=== PATIENT | male | born 1980 | race Caucasian/White ===

== ENCOUNTER 2017-12-22 10:08 | Emergency (ER) | payer BC ==
[2017-12-22 10:20] VITALS: RESP 18
--- NOTE | 2017-12-22 11:47 | ED ---
Dizziness HPI - General Chief Complaint: Dizziness Stated Complaint: Chest pain Time Seen by Provider: 12/22/17 10:54 Source: patient, RN notes reviewed Mode of arrival: wheelchair Limitations: no limitations - History of Present Illness Initial Comments: This is a 37-year-old male who presents with complaints of not feeling well. He states he had nausea vomiting and diarrhea 3 days ago the next day he felt better but is been having dizzy spells some hot flashes and sweats and 7. Also work today he had a brief episode of indigestion-like pain that lasted briefly but he had about 2 minutes of chest pain where he felt someone was standing as chest. He was seen at his doctor's office and EKG was done he was sent here for further evaluation. Patient states since arriving feels better he has any chest pain no shortness breath he has had a dry cough associated with some shortness of breath he had over the weekend. He has a dry cough as stated. No other complaints at this time. He is a smoker. No family history of early heart disease. MD Complaint: dizziness, lightheadedness, other - Related Data Previous Rx's Medication Instructions Recorded Meclizine [Antivert] 25 mg PO TID #20 tab 12/22/17 Allergies Allergy/AdvReac Type Severity Reaction Status Date / Time No Known Allergies Allergy Unverified 12/22/17 10:31 Review of Systems ROS Statement: Those systems with pertinent positive or pertinent negative responses have been documented in the HPI. ROS Other: All systems not noted in ROS Statement are negative. Past Medical History Past Medical History: No Reported History History of Any Multi-Drug Resistant Organisms: None Reported Past Surgical History: Appendectomy Past Psychological History: No Psychological Hx Reported Smoking Status: Current every day smoker Past Alcohol Use History: Rare Past Drug Use History: None Reported General Exam - General Exam Comments Initial Comments: This a well-developed well-nourished awake alert oriented history male Limitations: no limitations General appearance: alert, in no apparent distress Head exam: Present: atraumatic, normocephalic, normal inspection Eye exam: Present: normal appearance, PERRL, EOMI. Absent: scleral icterus, conjunctival injection, periorbital swelling ENT exam: Present: normal exam, mucous membranes moist Neck exam: Present: normal inspection. Absent: tenderness, meningismus, lymphadenopathy Respiratory exam: Present: normal lung sounds bilaterally. Absent: respiratory distress, wheezes, rales, rhonchi, stridor Cardiovascular Exam: Present: regular rate, normal rhythm, normal heart sounds. Absent: systolic murmur, diastolic murmur, rubs, gallop, clicks GI/Abdominal exam: Present: soft, normal bowel sounds. Absent: distended, tenderness, guarding, rebound, rigid Extremities exam: Present: normal inspection, full ROM, normal capillary refill. Absent: tenderness, pedal edema, joint swelling, calf tenderness Back exam: Present: normal inspection Neurological exam: Present: alert, oriented X3, CN II-XII intact Psychiatric exam: Present: normal affect, normal mood Skin exam: Present: warm, dry, intact, normal color. Absent: rash Course Vital Signs 12/22/17 10:17 Temperature 98.4 F Pulse Rate 74 Respiratory 18 Rate Blood Pressure 119/78 O2 Sat by Pulse 100 Oximetry - Reevaluation(s) Reevaluation #1: 12/22/17 13:38 Smoking cessation: I did have a long discussion with patient regarding the risks of smoking and benefits of stopping. Told conversation lasting 3.1 minutes. Medical Decision Making - Medical Decision Making I did discuss findings with the patient improved he'll be discharged on Antivert for dizziness. I did recommend that he quit smoking and also follow- up with his doctor and get outpatient stress test. He is in agreement with this. - Lab Data Result diagrams: 12/22/17 12:04 12/22/17 12:04 Lab Results 12/22/17 12/22/17 12/22/17 Range/Units 12:04 12:04 12:04 WBC 8.7 (3.8-10.6) k/uL RBC 5.78 (4.30-5.90) m/uL Hgb 15.8 (13.0-17.5) gm/dL Hct 48.7 (39.0-53.0) % MCV 84.4 (80.0-100.0) fL MCH 27.3 (25.0-35.0) pg MCHC 32.4 (31.0-37.0) g/dL RDW 12.4 (11.5-15.5) % Plt Count 211 (150-450) k/uL Neutrophils % 67 % Lymphocytes % 24 % Monocytes % 5 % Eosinophils % 2 % Basophils % 1 % Neutrophils # 5.8 (1.3-7.7) k/uL Lymphocytes # 2.1 (1.0-4.8) k/uL Monocytes # 0.5 (0-1.0) k/uL Eosinophils # 0.2 (0-0.7) k/uL Basophils # 0.1 (0-0.2) k/uL PT (9.0-12.0) sec INR (<1.2) APTT (22.0-30.0) sec D-Dimer (<0.60) mg/L FEU Sodium 139 (137-145) mmol/L Potassium 4.6 (3.5-5.1) mmol/L Chloride 103 (98-107) mmol/L Carbon Dioxide 27 (22-30) mmol/L Anion Gap 9 mmol/L BUN 15 (9-20) mg/dL Creatinine 0.54 L (0.66-1.25) mg/dL Est GFR (MDRD) Af Amer >60 (>60 ml/min/1.73 sqM) Est GFR (MDRD) Non-Af >60 (>60 ml/min/1.73 sqM) Glucose 89 (74-99) mg/dL Calcium 10.0 (8.4-10.2) mg/dL Magnesium 1.9 (1.6-2.3) mg/dL Total Bilirubin 0.4 (0.2-1.3) mg/dL AST 22 (17-59) U/L ALT 24 (21-72) U/L Alkaline Phosphatase 75 (38-126) U/L Total Creatine Kinase 87 (55-170) U/L CK-MB (CK-2) 1.0 (0.0-2.4) ng/mL CK-MB (CK-2) Rel Index 1.1 Troponin I <0.012 (0.000-0.034) ng/mL Total Protein 7.2 (6.3-8.2) g/dL Albumin 4.4 (3.5-5.0) g/dL Amylase 60 (30-110) U/L Lipase 52 (23-300) U/L 12/22/17 Range/Units 12:04 WBC (3.8-10.6) k/uL RBC (4.30-5.90) m/uL Hgb (13.0-17.5) gm/dL Hct (39.0-53.0) % MCV (80.0-100.0) fL MCH (25.0-35.0) pg MCHC (31.0-37.0) g/dL RDW (11.5-15.5) % Plt Count (150-450) k/uL Neutrophils % % Lymphocytes % % Monocytes % % Eosinophils % % Basophils % % Neutrophils # (1.3-7.7) k/uL Lymphocytes # (1.0-4.8) k/uL Monocytes # (0-1.0) k/uL Eosinophils # (0-0.7) k/uL Basophils # (0-0.2) k/uL PT 10.3 (9.0-12.0) sec INR 1.1 (<1.2) APTT 23.7 (22.0-30.0) sec D-Dimer 0.27 (<0.60) mg/L FEU Sodium (137-145) mmol/L Potassium (3.5-5.1) mmol/L Chloride (98-107) mmol/L Carbon Dioxide (22-30) mmol/L Anion Gap mmol/L BUN (9-20) mg/dL Creatinine (0.66-1.25) mg/dL Est GFR (MDRD) Af Amer (>60 ml/min/1.73 sqM) Est GFR (MDRD) Non-Af (>60 ml/min/1.73 sqM) Glucose (74-99) mg/dL Calcium (8.4-10.2) mg/dL Magnesium (1.6-2.3) mg/dL Total Bilirubin (0.2-1.3) mg/dL AST (17-59) U/L ALT (21-72) U/L Alkaline Phosphatase (38-126) U/L Total Creatine Kinase (55-170) U/L CK-MB (CK-2) (0.0-2.4) ng/mL CK-MB (CK-2) Rel Index Troponin I (0.000-0.034) ng/mL Total Protein (6.3-8.2) g/dL Albumin (3.5-5.0) g/dL Amylase (30-110) U/L Lipase (23-300) U/L - EKG Data -: EKG Interpreted by Me EKG shows normal: sinus rhythm, axis, intervals, QRS complexes, ST-T waves (EKG shows a normal sinus rhythm a 65 appear interval 158 QRS duration 88 QT since QTC of 394/49 is normal. EKG.) Rate: normal - Radiology Data Radiology results: report reviewed (I did review the imaging and reports no acute findings.), image reviewed Disposition Clinical Impression: Dizziness, Atypical chest pain Disposition: HOME SELF-CARE Condition: Good Instructions: Dizziness (ED), Chest Pain (ED) Additional Instructions: Follow-up with her doctor. Recommendations are for an outpatient cardiac stress test. Prescriptions: Meclizine [Antivert] 25 mg PO TID #20 tab Referrals: Papo Herrera MD [Primary Care Provider] - 1-2 days
[2017-12-22 12:25] LABS: Basophils # (A) 0.1 k/uL (0-0.2); Basophils % (A) 1 %; Eosinophils # (A) 0.2 k/uL (0-0.7); Eosinophils % (A) 2 %; HCT 48.7 % (39.0-53.0); HGB 15.8 gm/dL (13.0-17.5); Lymphocytes # (A) 2.1 k/uL (1.0-4.8); Lymphocytes % (A) 24 %; MCH 27.3 pg (25.0-35.0); MCHC 32.4 g/dL (31.0-37.0); MCV 84.4 fL (80.0-100.0); Mean Platelet Volume 6.1; Monocytes # (A) 0.5 k/uL (0-1.0); Monocytes % (A) 5 %; Neutrophils # (A) 5.8 k/uL (1.3-7.7); Neutrophils % (A) 67 %; Platelet Count 211 k/uL (150-450); RBC 5.78 m/uL (4.30-5.90); RDW 12.4 % (11.5-15.5); WBC 8.7 k/uL (3.8-10.6)
[2017-12-22 12:32] LABS: D-Dimer 0.27 mg/L FEU (<0.60)
[2017-12-22 12:36] LABS: ALT 24 U/L (21-72); AST 22 U/L (17-59); Albumin 4.4 g/dL (3.5-5.0); Alkaline Phosphatase 75 U/L (38-126); Amylase 60 U/L (30-110); Anion Gap 9 mmol/L; Blood Urea Nitrogen 15 mg/dL (9-20); Carbon Dioxide 27 mmol/L (22-30); Chloride 103 mmol/L (98-107); Glucose 89 mg/dL (74-99); INR 1.1 (<1.2); Lipase 52 U/L (23-300); Magnesium 1.9 mg/dL (1.6-2.3); Partial Thromboplastin Time 23.7 sec (22.0-30.0); Potassium 4.6 mmol/L (3.5-5.1); Prothrombin Time 10.3 sec (9.0-12.0); Sodium 139 mmol/L (137-145); Total Bilirubin 0.4 mg/dL (0.2-1.3); Total Protein 7.2 g/dL (6.3-8.2)
--- NOTE | 2017-12-22 12:39 | XR ---
EXAMINATION TYPE: XR chest 2V DATE OF EXAM: 12/22/2017 COMPARISON: NONE HISTORY: Chest pain TECHNIQUE: 2 views of the chest are submitted. FINDINGS: There is no focal air space opacity, pleural effusion, or pneumothorax seen. The cardiac silhouette size is within normal limits. The osseous structures are intact. IMPRESSION: 1. No acute process.
[2017-12-22 12:51] LABS: Creatine Kinase 87 U/L (55-170)
[2017-12-22 13:05] LABS: Troponin I <0.012 ng/mL (0.000-0.034)
[2017-12-22 13:53] VITALS: BP 108/76; PULSE 73; TEMP 98.8
== END 2017-12-22 13:51 | disposition home or self-care (01) ==
LOC: EC 10:08
DX: R42 Dizziness and giddiness (principal); R07.89 Other chest pain; R11.2 Nausea with vomiting, unspecified; R19.7 Diarrhea, unspecified; R05 Cough; R06.02 Shortness of breath; F17.200 Nicotine dependence, unspecified, uncomplicated
CPT/HCPCS: 36415; 71046; 80053; 82150; 82550; 82553; 83690; 83735; 84484; 85025; 85379; 85610; 85730; 93005; 99284

== ENCOUNTER 2018-06-24 12:02 | Emergency (ER) | payer BC, OTHER ==
[2018-06-24 12:18] VITALS: TEMP 98.3
[2018-06-24] MEDS ORDERED: LIDOCAINE 1% INJ 10MG/ML (20 ML MDV) SQ STA (13:01)
--- NOTE | 2018-06-24 13:03 | ED ---
General Adult HPI - General Chief complaint: Wound/Laceration Stated complaint: Finger Laceration Time Seen by Provider: 06/24/18 12:44 Source: patient, RN notes reviewed Mode of arrival: ambulatory Limitations: no limitations - History of Present Illness Initial comments: Patient 37-year-old male presents to the emergency room today with a chief complaint of injury to the left hand when he was using a hedge or retention bushes at home. He states slipped causing this laceration to left hand. Patient does admit his tetanus is up-to-date. Patient denies any other complaints or symptoms. States he has full range of motion. Denies any numbness or tingling. - Related Data Previous Rx's Medication Instructions Recorded Meclizine [Antivert] 25 mg PO TID #20 tab 12/22/17 Allergies Allergy/AdvReac Type Severity Reaction Status Date / Time No Known Allergies Allergy Verified 06/24/18 12:17 Review of Systems ROS Statement: Those systems with pertinent positive or pertinent negative responses have been documented in the HPI. ROS Other: All systems not noted in ROS Statement are negative. Past Medical History Past Medical History: No Reported History History of Any Multi-Drug Resistant Organisms: None Reported Past Surgical History: Appendectomy, Orthopedic Surgery Past Psychological History: No Psychological Hx Reported Smoking Status: Current every day smoker Past Alcohol Use History: Occasional Past Drug Use History: Marijuana General Exam - General Exam Comments Initial Comments: General: The patient is awake and alert, in no distress, and does not appear acutely ill. Neck: The neck is supple, there is no tenderness or JVD. Musculoskeletal: Full range motion. Sensation intact. Strength 4/5. Pulses 2+ . Neurological: A&O x 3. CN II-XII intact, There are no obvious motor or sensory deficits. Coordination appears grossly intact. Speech is normal. Skin: Laceration to the volar aspect of the third digit of the left hand measuring less than 1 cm. Psychiatric: Normal mood and affect. Limitations: no limitations Course Vital Signs 06/24/18 12:14 Temperature 98.3 F Pulse Rate 78 Respiratory 16 Rate Blood Pressure 149/97 O2 Sat by Pulse 99 Oximetry Procedures - Procedures Initial comment: 1 cm laceration to the volar aspect of the right middle finger.The skin was anesthetized with 1% lidocaine at the head of the metacarpal.. The laceration was then cleansed with Betadine and irrigated with normal saline. The wound was inspected, and there was no evidence of injury to deep structures. No foreign body was noted in the wound. A total of 3 skin sutures were placed utilizing 5- 0 nylon. Disposition Clinical Impression: Laceration Disposition: HOME SELF-CARE Condition: Good Instructions: Laceration (ED) Additional Instructions: Please return to the emergency room in 8-10 days to have sutures removed. Please watch for any signs of infection which may include increased pain, swelling, redness, fever or chills. Please return to emergency room for any signs of infection do occur. Please use clean soap and water over the area to prevent scabbing over your stitches. Please leave wound covered for the first 24-48 hours and then leave wound open to air. Please return to the emergency room for any other concerns. Is patient prescribed a controlled substance at d/c from ED?: No Referrals: Papo Herrera MD [Primary Care Provider] - 1-2 days Time of Disposition: 13:51
[2018-06-24 14:02] VITALS: BP 118/73; PULSE 64; RESP 18
== END 2018-06-24 14:02 | disposition home or self-care (01) ==
LOC: EC 12:02
DX: S61.213A Laceration without foreign body of left middle finger without damage to nail, initial encounter (principal); F17.200 Nicotine dependence, unspecified, uncomplicated; Z90.49 Acquired absence of other specified parts of digestive tract; W26.8XXA Contact with other sharp object(s), not elsewhere classified, initial encounter; Y92.89 Other specified places as the place of occurrence of the external cause; Y93.89 Activity, other specified
CPT/HCPCS: 99282; 12001; J2001

== ENCOUNTER 2019-01-04 20:12 | Emergency (ER) | payer OTHER ==
[2019-01-04 20:31] VITALS: BP 117/82; PULSE 83; RESP 18; TEMP 98.5
[2019-01-04] MEDS ORDERED: DIPH,PERTUS(ACELL)TETVAC-LF 0.5 ML VIAL IM ONE (20:56)
[2019-01-04] MEDS ORDERED: LIDOCAINE 1% INJ 10MG/ML (20 ML MDV) SQ STA (20:57)
--- NOTE | 2019-01-04 21:27 | ED ---
General Adult HPI - General Chief complaint: Wound/Laceration Stated complaint: lt middle finger lac Time Seen by Provider: 01/04/19 20:37 Source: patient, family, RN notes reviewed, old records reviewed Mode of arrival: ambulatory Limitations: no limitations - History of Present Illness Initial comments: 38-year-old male patient with no pertinent past medical history presents to ED after sustaining a laceration to the dorsal aspect of the third digit on has left hand. Patient was reportedly sharpening knife when he accidentally hit a superficial laceration on the dorsal aspect of his third digit distal to his PIP joint. Patient denies any other injury. Patient reports last tetanus was 5 years ago. Patient had tetanus updated today. Systemic: Pt denies fatigue, myalgia, fever/chills, rash. Pt denies weakness, night sweats, weight loss. Neuro: Pt denies headache, visual disturbances, syncope or pre-syncope. HEENT: Pt denies ocular discharge or irritation, otalgia, rhinorrhea, pharyngitis or notable lymphadenopathy. Cardiopulmonary: Pt denies chest pain, SOB, heart palpitations, dyspnea on exertion. Abdominal/GI: Pt denies abdominal pain, n/v/d. : Pt denies dysuria, burning w/ urination, frequency/urgency. Denies new onset urinary or bowel incontinence. MSK: Pt denies myalgia, loss of strength or function in extremities. Neuro: Pt denies new onset weakness, paresthesias. - Related Data Previous Rx's Medication Instructions Recorded Meclizine [Antivert] 25 mg PO TID #20 tab 12/22/17 Allergies Allergy/AdvReac Type Severity Reaction Status Date / Time No Known Allergies Allergy Verified 01/04/19 20:31 Review of Systems ROS Statement: Those systems with pertinent positive or pertinent negative responses have been documented in the HPI. ROS Other: All systems not noted in ROS Statement are negative. Past Medical History Past Medical History: No Reported History History of Any Multi-Drug Resistant Organisms: None Reported Past Surgical History: Appendectomy, Orthopedic Surgery Past Psychological History: No Psychological Hx Reported Smoking Status: Current every day smoker Past Alcohol Use History: Occasional Past Drug Use History: Marijuana General Exam - General Exam Comments Initial Comments: Constitutional: NAD, AOX3, Pt has pleasant affect. HEENT: NC/AT, trachea midline, neck supple, no lymphadenopathy. Posterior pharynx non erythematous, without exudates. External ears appear normal, without discharge. Mucous membranes moist. Eyes PERRLA, EOM intact. There is no scleral icterus. No pallor noted. Cardiopulmonary: RRR, no murmurs, rubs or gallops, no JVD noted. Lungs CTAB in anterior and posterior mont[place]ayor. No peripheral edema. Abdominal exam: Abdomen soft and non-distended. Abdomen non-tender to palpation in all 4 quadrants. Bowel sounds active in LLQ. No hepatosplenomegaly. No ecchymosis Neuro: CN II-XII grossly intact. No nuchal rigidity. MSK: Approximately 2 cm laceration noted distal to PIP joint of third digit of left hand. Wound is superficial. No bony or ligamentous involvement. No foreign body. Wound closed with 4 simple interrupted sutures. Patient has intact flexion and extension of PIP, DIP and MCP joint of the affected finger. Patient sensation intact. Capillary refill less than 2 seconds. No posterior calf tenderness bilaterally, homans sign negative bilaterally. Posterior tibialis and radial pulse +2 bilaterally. Sensation intact in upper and lower extremities. Full active ROM in upper and lower extremities, 5/5 stregnth. Limitations: no limitations Course Vital Signs 01/04/19 20:27 Temperature 98.5 F Pulse Rate 83 Respiratory 18 Rate Blood Pressure 117/82 O2 Sat by Pulse 97 Oximetry Medical Decision Making - Medical Decision Making 38-year-old male patient presents with laceration to third digit of left hand. Wound is closed with 4 simple interrupted sutures. Patient to follow-up in 710 days for suture removal. Patient educated on signs symptoms of infection, verbalized understanding. Patient tetanus updated today. Patient to return to ED if new signs symptoms develop or if condition worsens anyway. Case discussed in depth with Dr. Morrissey. Disposition Clinical Impression: Laceration Disposition: HOME SELF-CARE Condition: Stable Instructions (If sedation given, give patient instructions): Laceration (ED) Additional Instructions: Patient to adhere to previously discussed treatment plan and will take medication(s) as directed. Patient to follow up with PCP in 1-2 days. Patient to return to ED if symptoms do not improve. Is patient prescribed a controlled substance at d/c from ED?: No Referrals: Papo Herrera MD [Primary Care Provider] - 1-2 days Time of Disposition: 21:55
--- NOTE | 2019-01-04 23:13 | ED ---
Disposition Clinical Impression: Laceration Disposition: HOME SELF-CARE Condition: Stable Instructions (If sedation given, give patient instructions): Laceration (ED) Additional Instructions: Patient to adhere to previously discussed treatment plan and will take medication(s) as directed. Patient to follow up with PCP in 1-2 days. Patient to return to ED if symptoms do not improve. Is patient prescribed a controlled substance at d/c from ED?: No Referrals: Papo Herrera MD [Primary Care Provider] - 1-2 days Procedures - Laceration Laceration #1 Consent Obtained: verbal consent Indication: laceration Site: hand (3rd digit L hand) Size (cm): 2 Description: linear Depth: simple, single layer Anesthetic Used: lidocaine 1% Anesthesia Technique: local infiltration Amount (mls): 3 Pre-repair: wound explored, deep structures intact Type of Sutures: nylon Size of Sutures: 5-0 Number of Sutures: 4 Technique: simple, interrupted Patient Tolerated Procedure: well, no complications
== END 2019-01-04 22:02 | disposition home or self-care (01) ==
LOC: EC 20:12
DX: S61.213A Laceration without foreign body of left middle finger without damage to nail, initial encounter (principal); Z23 Encounter for immunization; F17.200 Nicotine dependence, unspecified, uncomplicated; W26.0XXA Contact with knife, initial encounter; Y92.000 Kitchen of unspecified non-institutional (private) residence as the place of occurrence of the external cause
CPT/HCPCS: 90715; 99283; 12001; 90471; J2001

== ENCOUNTER 2020-02-10 23:32 | Emergency (ER) | payer OTHER ==
[2020-02-11 00:03] VITALS: BP 111/75; RESP 18; TEMP 98
[2020-02-11] MEDS ORDERED: IPRATROPIUM-ALBUTEROL 3 ML NEB INHALATION STA (01:06)
[2020-02-11] MEDS ORDERED: predniSONE 50 MG TAB PO STA (01:06)
--- NOTE | 2020-02-11 01:26 | XR ---
EXAMINATION TYPE: XR chest 2V DATE OF EXAM: 02/11/2020 COMPARISON: 12/22/2017 HISTORY: Nausea and dizziness TECHNIQUE: FINDINGS: Heart and mediastinum are normal. Lungs are clear. Diaphragm is normal. Bony thorax appears normal. IMPRESSION: Normal chest. No change.
[2020-02-11] MEDS ORDERED: AZITHROMYCIN 500 MG TAB PO STA (01:30)
--- NOTE | 2020-02-11 01:32 | ED ---
URI HPI - General Chief Complaint: Upper Respiratory Infection Stated Complaint: diff breathing,weakness Time Seen by Provider: 02/11/20 00:52 Source: patient Mode of arrival: ambulatory - History of Present Illness Initial Comments: 39-year-old male patient presents to the emergency department today for evaluation of cough, congestion, facial pressure for the last 3 weeks. Patient states symptoms started as a usual upper respiratory infection. Patient states most of the symptoms have decreased except his cough and facial pressure gotten worse. He is reporting a dry cough with no sputum production. States he has a coughing episodes where causes him to vomit. Patient states he is also having a lot of pressure behind the right eye and decreased hearing to the right ear. Patient denies any ear drainage. Denies any fevers or chills. States he has had sinus infections in the past that were similar. He does report some shortness of breath especially with going upstairs and performing physical activity. Denies any wheezing. Does admit to smoking cigarettes. Patient denies any recent rash, chest pain, abdominal pain, nausea, vomiting, diarrhea, constipation, back pain, numbness, tingling, dizziness, weakness, hematuria, dysuria, urinary urgency, urinary frequency, headache, visual changes, or any other complaints. - Related Data Previous Rx's Medication Instructions Recorded Meclizine [Antivert] 25 mg PO TID #20 tab 12/22/17 Albuterol Sulfate [Proair Hfa] 1 - 2 puff INHALATION Q6HR PRN #1 02/11/20 inhaler Azithromycin [Zithromax Z-pack] 0 mg PO DIRECTED #6 tab 02/11/20 predniSONE 50 mg PO DAILY #5 tablet 02/11/20 Allergies Allergy/AdvReac Type Severity Reaction Status Date / Time bee venom protein (honey bee) AdvReac Anaphylaxis Verified 02/11/20 00:04 Review of Systems ROS Statement: Those systems with pertinent positive or pertinent negative responses have been documented in the HPI. ROS Other: All systems not noted in ROS Statement are negative. Past Medical History Past Medical History: No Reported History History of Any Multi-Drug Resistant Organisms: None Reported Past Surgical History: Appendectomy, Orthopedic Surgery Past Psychological History: ADD/ADHD Smoking Status: Current every day smoker Past Alcohol Use History: Rare Past Drug Use History: Marijuana General Exam General appearance: alert, in no apparent distress, other (This is a well- developed, well-nourished adult male patient in no acute distress. Vital signs upon presentation are temperature 98.0F, pulse 92, respirations 18, blood pressure 111/75, pulse ox 98% on room air.) Eye exam: Present: normal appearance, PERRL, EOMI. Absent: scleral icterus, conjunctival injection, periorbital swelling ENT exam: Present: normal exam, normal oropharynx, mucous membranes moist. Absent: TM's normal bilaterally (Bulging right tympanic membrane, consistent with fluid behind the ear. No sign of otitis media) Neck exam: Present: normal inspection. Absent: tenderness, meningismus, lymphadenopathy Respiratory exam: Present: normal lung sounds bilaterally. Absent: respiratory distress, wheezes, rales, rhonchi, stridor Cardiovascular Exam: Present: regular rate, normal rhythm, normal heart sounds. Absent: systolic murmur, diastolic murmur, rubs, gallop, clicks Neurological exam: Present: alert, oriented X3, CN II-XII intact Psychiatric exam: Present: normal affect, normal mood Skin exam: Present: warm, dry, intact, normal color. Absent: rash Course Vital Signs 02/10/20 02/11/20 02/11/20 23:59 01:30 01:39 Temperature 98.0 F Pulse Rate 92 70 70 Respiratory 18 Rate Blood Pressure 111/75 O2 Sat by Pulse 98 Oximetry Medical Decision Making - Medical Decision Making 39-year-old male patient presents to the emergency department today for evaluation of upper respiratory symptoms including cough, congestion, nasal pressure. Physical examination did reveal fluid behind the right eardrum. Chest x-ray showed no acute cardiopulmonary process. Patient does report improvement of symptoms after receiving a breathing treatment and steroids. He'll be discharged home with a perception for prednisone, azithromycin, and Pro Air inhaler. He is instructed to follow-up with his primary care physician for recheck in 1-2 days. Return parameters were discussed in detail. He verbalizes understanding and agrees with this plan. - Radiology Data Radiology results: report reviewed, image reviewed Two-view x-ray of the chest is obtained. Report was reviewed in its entirety. Impression by Dr. Ortiz shows normal chest. No change. Disposition Clinical Impression: Acute bronchitis Disposition: HOME SELF-CARE Condition: Good Instructions (If sedation given, give patient instructions): Acute Bronchitis (ED) Additional Instructions: Take medications as directed. Continue taking Sudafed [id number] to aid with drainage of a right ear. Complete antibiotic and steroid prescription in full. Follow-up with her primary care physician for recheck in 1-2 days. Return to the emergency department immediately for any new, worsening, or concer cinthia symptoms. Prescriptions: predniSONE 50 mg PO DAILY #5 tablet Albuterol Sulfate [Proair Hfa] 1 - 2 puff INHALATION Q6HR PRN #1 inhaler PRN Reason: Shortness Of Breath Azithromycin [Zithromax Z-pack] 0 mg PO DIRECTED #6 tab Is patient prescribed a controlled substance at d/c from ED?: No Referrals: Papo Herrera MD [Primary Care Provider] - 1-2 days Time of Disposition: 01:32
[2020-02-11 01:33] VITALS: PULSE 70
== END 2020-02-11 01:50 | disposition home or self-care (01) ==
LOC: EC 23:32
DX: J20.9 Acute bronchitis, unspecified (principal); F17.210 Nicotine dependence, cigarettes, uncomplicated; Z91.030 Bee allergy status
CPT/HCPCS: 94640; 71046; 99285; J7512

== ENCOUNTER 2020-06-01 15:21 | Emergency (ER) | payer OTHER ==
[2020-06-01 15:33] VITALS: BP 117/88; PULSE 77; RESP 18; TEMP 98.4
[2020-06-01] MEDS ORDERED: IBUPROFEN 400 MG TAB PO STA (16:04)
--- NOTE | 2020-06-01 17:06 | ED ---
General Adult HPI - General Chief complaint: ENT Stated complaint: ear and throat pain Time Seen by Provider: 06/01/20 15:26 Source: patient, RN notes reviewed, old records reviewed Mode of arrival: ambulatory Limitations: no limitations - History of Present Illness Initial comments: 39-year-old male patient presents ED chief complaint of sore throat and right ear pain. He reports that he has a swollen lymph node in his right submandibular region which is causing him pain. Denies any cough congestion. Reports she was recently tested for coronavirus virus and was negative. Denies any other complaints. Systemic: Pt denies fatigue, fever/chills, rash. Pt denies weakness, night sweats, weight loss. Neuro: Pt denies headache, visual disturbances, syncope or pre-syncope. HEENT: Pt denies ocular discharge or irritation, otalgia, rhinorrhea. Cardiopulmonary: Pt denies chest pain, SOB, heart palpitations, dyspnea on exertion. Abdominal/GI: Pt denies abdominal pain, n/v/d. : Pt denies dysuria, burning w/ urination, frequency/urgency. Denies new onset urinary or bowel incontinence. MSK: Pt denies myalgia, loss of strength or function in extremities. Neuro: Pt denies new onset weakness, paresthesias. - Related Data Previous Rx's Medication Instructions Recorded Meclizine [Antivert] 25 mg PO TID #20 tab 12/22/17 Albuterol Sulfate [Proair Hfa] 1 - 2 puff INHALATION Q6HR PRN #1 02/11/20 inhaler Azithromycin [Zithromax Z-pack] 0 mg PO DIRECTED #6 tab 02/11/20 predniSONE 50 mg PO DAILY #5 tablet 02/11/20 Allergies Allergy/AdvReac Type Severity Reaction Status Date / Time bee venom protein (honey bee) AdvReac Anaphylaxis Verified 06/01/20 15:30 Review of Systems ROS Statement: Those systems with pertinent positive or pertinent negative responses have been documented in the HPI. ROS Other: All systems not noted in ROS Statement are negative. Past Medical History Past Medical History: No Reported History History of Any Multi-Drug Resistant Organisms: None Reported Past Surgical History: Appendectomy, Orthopedic Surgery Past Psychological History: ADD/ADHD Smoking Status: Current every day smoker Past Alcohol Use History: None Reported Past Drug Use History: Marijuana General Exam - General Exam Comments Initial Comments: Constitutional: NAD, AOX3, Pt has pleasant affect. HEENT: NC/AT, trachea midline, neck supple, mild submandibular adenopathy noted, mobile, no skin changes. Posterior pharynx non erythematous, without exudates. External ears appear normal, without discharge. TM pale greenberg bilaterally. Mucous membranes moist. Eyes PERRLA, EOM intact. There is no scleral icterus. No pallor noted. Cardiopulmonary: RRR, no murmurs, rubs or gallops, no JVD noted. Lungs CTAB in anterior and posterior [place]. No peripheral edema. Abdominal exam: Abdomen soft and non-distended. Abdomen non-tender to palpation in all 4 quadrants. Bowel sounds active in LLQ. No hepatosplenomegaly. No ecchymosis Neuro: CN II-XII grossly intact. No nuchal rigidity. No raccon eyes, no castillo sign, no hemotympanum. No cervical spinal tenderness. MSK: Full active ROM in upper and lower extremities, 5/5 stregnth. Limitations: no limitations Course Vital Signs 06/01/20 15:30 Temperature 98.4 F Pulse Rate 77 Respiratory 18 Rate Blood Pressure 117/88 O2 Sat by Pulse 96 Oximetry Medical Decision Making - Medical Decision Making 39-year-old male patient received chief complaint of sore throat ear pain 70 regular lymphadenopathy. Patient also has a stable, afebrile. Physical exam displayed mild submandibular lymphadenopathy. Posterior pharynx and tympanic membranes exam negative for acute pathology. Group A strep was negative. Patient advised to use anti-inflammatories. With primary care provider and return to ER if condition worsens. Patient denies covid test. Case discussed with Dr. Morrissey. - Lab Data Lab Results 06/01/20 Range/Units 16:09 Group A Strep Rapid Negative (Negative) Disposition Clinical Impression: Sore throat, Otalgia Disposition: HOME SELF-CARE Condition: Stable Instructions (If sedation given, give patient instructions): Earache (ED) Additional Instructions: Follow-up with primary care provider tomorrow. Use Tylenol and Motrin as needed. Return to ER if condition worsens. Is patient prescribed a controlled substance at d/c from ED?: No Referrals: Papo Herrera MD [Primary Care Provider] - 1-2 days
== END 2020-06-01 17:21 | disposition home or self-care (01) ==
LOC: EC 15:21
DX: H92.01 Otalgia, right ear (principal); J02.9 Acute pharyngitis, unspecified; R59.0 Localized enlarged lymph nodes; F17.200 Nicotine dependence, unspecified, uncomplicated; Z91.030 Bee allergy status
CPT/HCPCS: 87081; 87430; 99283

== ENCOUNTER 2021-04-18 11:16 | Emergency (ER) | payer OTHER ==
[2021-04-18 11:33] VITALS: RESP 18; TEMP 98.1
[2021-04-18] MEDS ORDERED: SODIUM CHLORIDE 0.9% 2,000 ML IV STA (12:45)
[2021-04-18] MEDS ORDERED: ONDANSETRON 4 MG/2 ML VIAL IVP STA (12:45)
[2021-04-18] MEDS ORDERED: DICYCLOMINE 20 MG TAB PO STA (12:46)
--- NOTE | 2021-04-18 13:04 | ED ---
Nausea/Vomiting/Diarrhea HPI - General Chief complaint: Nausea/Vomiting/Diarrhea Stated complaint: vomiting Time Seen by Provider: 04/18/21 12:23 Source: patient, RN notes reviewed Mode of arrival: ambulatory Limitations: no limitations - History of Present Illness Initial comments: This a 40-year-old male presents emergency Department chief complaint of nausea vomiting abdominal discomfort. Patient states started 4 days ago states started 3 minutes after eating some food. He initially thought he just had some illness from food. Patient states symptoms have not improved much she states she is able to tolerate oral intake states causes some abdominal cramping and later tonight he ends up vomiting. Patient reports no localized pain no fevers chills no headache or dizziness currently. Patient's had prior appendectomy doesn't there is a daily smoker. - Related Data Previous Rx's Medication Instructions Recorded Dicyclomine [Bentyl] 20 mg PO TID #30 tablet 04/18/21 Ondansetron Odt [Zofran Odt] 4 mg PO Q8HR PRN #10 tab 04/18/21 Allergies Allergy/AdvReac Type Severity Reaction Status Date / Time bee venom protein (honey bee) Allergy Anaphylaxis Verified 04/18/21 12:57 Review of Systems ROS Statement: Those systems with pertinent positive or pertinent negative responses have been documented in the HPI. ROS Other: All systems not noted in ROS Statement are negative. Past Medical History Past Medical History: No Reported History History of Any Multi-Drug Resistant Organisms: None Reported Past Surgical History: Appendectomy, Orthopedic Surgery Past Psychological History: ADD/ADHD Smoking Status: Current every day smoker Past Alcohol Use History: None Reported Past Drug Use History: Marijuana General Exam Limitations: no limitations General appearance: alert, in no apparent distress Head exam: Present: atraumatic, normocephalic, normal inspection Eye exam: Present: normal appearance, PERRL, EOMI. Absent: scleral icterus, conjunctival injection, periorbital swelling ENT exam: Present: normal exam, mucous membranes moist Neck exam: Present: normal inspection. Absent: tenderness, meningismus, lymphadenopathy Respiratory exam: Present: wheezes. Absent: normal lung sounds bilaterally, respiratory distress, rales, rhonchi, stridor Cardiovascular Exam: Present: regular rate, normal rhythm, normal heart sounds. Absent: systolic murmur, diastolic murmur, rubs, gallop, clicks GI/Abdominal exam: Present: soft, tenderness (Mild diffuse), normal bowel sounds. Absent: distended, guarding, rebound, rigid Back exam: Absent: CVA tenderness (R), CVA tenderness (L) Neurological exam: Present: alert Skin exam: Present: warm, dry, intact, normal color. Absent: rash Course Vital Signs 04/18/21 11:29 Temperature 98.1 F Pulse Rate 82 Respiratory 18 Rate Blood Pressure 116/75 O2 Sat by Pulse 97 Oximetry Medical Decision Making - Medical Decision Making 4-year-old presented for nausea vomiting patient greatly improved after IV fluids Zofran and Bentyl he states he does not have any abdominal cramps or nausea. This most leg is a viral GI illness will be discharged and stable condition return parameters discussed. - Lab Data Result diagrams: 04/18/21 13:05 04/18/21 13:05 Lab Results 04/18/21 04/18/21 04/18/21 Range/Units 13:05 13:05 13:05 WBC 9.3 (3.8-10.6) k/uL RBC 5.55 (4.30-5.90) m/uL Hgb 15.5 (13.0-17.5) gm/dL Hct 45.4 (39.0-53.0) % MCV 82.0 (80.0-100.0) fL MCH 28.0 (25.0-35.0) pg MCHC 34.2 (31.0-37.0) g/dL RDW 12.3 (11.5-15.5) % Plt Count 226 (150-450) k/uL MPV 6.3 Neutrophils % 60 % Lymphocytes % 28 % Monocytes % 8 % Eosinophils % 1 % Basophils % 1 % Neutrophils # 5.5 (1.3-7.7) k/uL Lymphocytes # 2.6 (1.0-4.8) k/uL Monocytes # 0.8 (0-1.0) k/uL Eosinophils # 0.1 (0-0.7) k/uL Basophils # 0.1 (0-0.2) k/uL Sodium 135 L (137-145) mmol/L Potassium 3.7 (3.5-5.1) mmol/L Chloride 101 (98-107) mmol/L Carbon Dioxide 27 (22-30) mmol/L Anion Gap 7 mmol/L BUN 13 (9-20) mg/dL Creatinine 0.55 L (0.66-1.25) mg/dL Est GFR (CKD-EPI)AfAm >90 (>60 ml/min/1.73 sqM) Est GFR (CKD-EPI)NonAf >90 (>60 ml/min/1.73 sqM) Glucose 100 H (74-99) mg/dL Calcium 9.7 (8.4-10.2) mg/dL Total Bilirubin 0.8 (0.2-1.3) mg/dL AST 25 (17-59) U/L ALT 12 (4-49) U/L Alkaline Phosphatase 91 (38-126) U/L Total Protein 7.1 (6.3-8.2) g/dL Albumin 4.3 (3.5-5.0) g/dL Amylase 46 (30-110) U/L Lipase 47 (23-300) U/L Urine Color Yellow Urine Appearance Cloudy (Clear) Urine pH 5.5 (5.0-8.0) Ur Specific [place] 1.031 (1.001-1.035) Urine Protein Trace H (Negative) Urine Glucose (UA) Negative (Negative) Urine Ketones Negative (Negative) Urine Blood Trace H (Negative) Urine Nitrite Negative (Negative) Urine Bilirubin Negative (Negative) Urine Urobilinogen 3.0 (<2.0) mg/dL Ur Leukocyte Esterase Negative (Negative) Urine RBC 2 (0-5) /hpf Urine WBC 2 (0-5) /hpf Ur Squamous Epith Cells 3 (0-4) /hpf Amorphous Sediment Rare H (None) /hpf Urine Bacteria Rare H (None) /hpf Urine Mucus Many H (None) /hpf Disposition Clinical Impression: Gastroenteritis Disposition: HOME SELF-CARE Condition: Stable Instructions (If sedation given, give patient instructions): Acute Nausea and Vomiting (ED) Additional Instructions: Please return to the Emergency Department if symptoms worsen or any other concerns. Prescriptions: Dicyclomine [Bentyl] 20 mg PO TID #30 tablet Ondansetron Odt [Zofran Odt] 4 mg PO Q8HR PRN #10 tab PRN Reason: Nausea Is patient prescribed a controlled substance at d/c from ED?: No Referrals: Papo Herrera MD [Primary Care Provider] - 1-2 days Time of Disposition: 14:10
[2021-04-18 13:24] LABS: Basophils # (A) 0.1 k/uL (0-0.2); Basophils % (A) 1 %; Eosinophils # (A) 0.1 k/uL (0-0.7); Eosinophils % (A) 1 %; HCT 45.4 % (39.0-53.0); HGB 15.5 gm/dL (13.0-17.5); Lymphocytes # (A) 2.6 k/uL (1.0-4.8); Lymphocytes % (A) 28 %; MCHC 34.2 g/dL (31.0-37.0); Mean Platelet Volume 6.3; Monocytes # (A) 0.8 k/uL (0-1.0); Monocytes % (A) 8 %; Neutrophils # (A) 5.5 k/uL (1.3-7.7); Neutrophils % (A) 60 %; Platelet Count 226 k/uL (150-450); RBC 5.55 m/uL (4.30-5.90); RDW 12.3 % (11.5-15.5); WBC 9.3 k/uL (3.8-10.6)
[2021-04-18 13:34] LABS: ALT 12 U/L (4-49); AST 25 U/L (17-59); African American GFR (CKD) >90 (>60 ml/min/1.73 sqM); Albumin 4.3 g/dL (3.5-5.0); Alkaline Phosphatase 91 U/L (38-126); Amorphous Sediment,Urine Rare /hpf; Amylase 46 U/L (30-110); Anion Gap 7 mmol/L; Appearance,Urine Cloudy (Clear); Bacteria,Urine Rare /hpf; Bilirubin,Urine Negative (Negative); Blood Urea Nitrogen 13 mg/dL (9-20); Blood,Urine Trace (Negative); Calcium 9.7 mg/dL (8.4-10.2); Carbon Dioxide 27 mmol/L (22-30); Chloride 101 mmol/L (98-107); Color,Urine Yellow; Glucose 100 mg/dL (74-99); Glucose,Urine (UA) Negative (Negative); Ketones,Urine Negative (Negative); Leukocyte Esterase,Urine Negative (Negative); Lipase 47 U/L (23-300); Mucus,Urine Many /hpf; Nitrite,Urine Negative (Negative); Non-African American GFR(CKD) >90 (>60 ml/min/1.73 sqM); PH, Urine 5.5 (5.0-8.0); Potassium 3.7 mmol/L (3.5-5.1); Protein,Urine Trace (Negative); RBC,Urine 2 /hpf (0-5); Sodium 135 mmol/L (137-145); Specific Gravity,Urine 1.031 (1.001-1.035); Squamous Epithelial Cell,Urine 3 /hpf (0-4); Total Bilirubin 0.8 mg/dL (0.2-1.3); Total Protein 7.1 g/dL (6.3-8.2); WBC,Urine 2 /hpf (0-5)
[2021-04-18 14:15] VITALS: BP 127/70; PULSE 56
== END 2021-04-18 14:21 | disposition home or self-care (01) ==
LOC: EC 11:16
DX: K52.9 Noninfective gastroenteritis and colitis, unspecified (principal); F90.9 Attention-deficit hyperactivity disorder, unspecified type; F12.90 Cannabis use, unspecified, uncomplicated; F17.200 Nicotine dependence, unspecified, uncomplicated
CPT/HCPCS: 36415; 80053; 82150; 83690; 85025; 81001; 99284; 96374; 96361; J2405

== ENCOUNTER 2021-11-26 10:02 | Emergency (ER) | payer OTHER ==
[2021-11-26 10:05] VITALS: RESP 18
[2021-11-26] MEDS ORDERED: PANTOPRAZOLE 40 MG/10 ML VIAL IVP STA (10:30)
[2021-11-26] MEDS ORDERED: SODIUM CHLORIDE 0.9% 2,000 ML IV STA (10:30)
[2021-11-26] MEDS ORDERED: ONDANSETRON 4 MG/2 ML VIAL IVP STA (10:30)
--- NOTE | 2021-11-26 10:46 | ED ---
General Adult HPI - General Chief complaint: Nausea/Vomiting/Diarrhea Stated complaint: vomiting Time Seen by Provider: 11/26/21 10:12 Source: patient, RN notes reviewed Mode of arrival: ambulatory Limitations: no limitations - History of Present Illness Initial comments: 41-year-old male presents emergency Department with chief complaint of nausea vomiting 3 days. Patient states during presents night in which she started feeling very nauseated, started vomiting said minimal loose stools no localized abdominal pain no fever states that he's had chills and sweats. Patient denies any chest pain no headache no dizziness. - Related Data Previous Rx's Medication Instructions Recorded Ondansetron Odt [Zofran Odt] 4 mg PO Q8HR PRN #10 tab 11/26/21 Allergies Allergy/AdvReac Type Severity Reaction Status Date / Time bee venom protein (honey bee) Allergy Anaphylaxis Verified 11/26/21 11:09 Review of Systems ROS Statement: Those systems with pertinent positive or pertinent negative responses have been documented in the HPI. ROS Other: All systems not noted in ROS Statement are negative. Past Medical History Past Medical History: No Reported History History of Any Multi-Drug Resistant Organisms: None Reported Past Surgical History: Appendectomy, Orthopedic Surgery Past Psychological History: ADD/ADHD Smoking Status: Current every day smoker Past Alcohol Use History: None Reported Past Drug Use History: Marijuana General Exam Limitations: no limitations General appearance: alert, in no apparent distress Head exam: Present: atraumatic, normocephalic, normal inspection Eye exam: Present: normal appearance, PERRL, EOMI. Absent: scleral icterus, conjunctival injection, periorbital swelling ENT exam: Present: normal exam, normal oropharynx, mucous membranes moist Neck exam: Present: normal inspection, full ROM. Absent: tenderness, meningismus, lymphadenopathy Respiratory exam: Present: normal lung sounds bilaterally. Absent: respiratory distress, wheezes, rales, rhonchi, stridor Cardiovascular Exam: Present: regular rate, normal rhythm, normal heart sounds. Absent: systolic murmur, diastolic murmur, rubs, gallop, clicks GI/Abdominal exam: Present: soft, normal bowel sounds. Absent: distended, tenderness, guarding, rebound, rigid Neurological exam: Present: alert Course Vital Signs 11/26/21 11/26/21 10:02 12:01 Temperature 98.9 F 99.5 F Pulse Rate 70 72 Respiratory 18 18 Rate Blood Pressure 138/87 122/68 O2 Sat by Pulse 99 98 Oximetry Medical Decision Making - Medical Decision Making Laboratory unremarkable. Patient is well-hydrated. Patient is positive for COVID-19. Patient discharged in stable condition return parameters discussed. - Lab Data Result diagrams: 11/26/21 10:30 11/26/21 10:30 Lab Results 11/26/21 11/26/21 11/26/21 Range/Units 10:30 10:30 10:30 WBC 6.3 (3.8-10.6) k/uL RBC 5.90 (4.30-5.90) m/uL Hgb 16.8 (13.0-17.5) gm/dL Hct 50.6 (39.0-53.0) % MCV 85.8 (80.0-100.0) fL MCH 28.5 (25.0-35.0) pg MCHC 33.3 (31.0-37.0) g/dL RDW 12.4 (11.5-15.5) % Plt Count 146 L (150-450) k/uL MPV 7.5 Neutrophils % 77 % Lymphocytes % 9 % Monocytes % 10 % Eosinophils % 1 % Basophils % 1 % Neutrophils # 4.8 (1.3-7.7) k/uL Lymphocytes # 0.6 L (1.0-4.8) k/uL Monocytes # 0.6 (0-1.0) k/uL Eosinophils # 0.0 (0-0.7) k/uL Basophils # 0.0 (0-0.2) k/uL Sodium 133 L (137-145) mmol/L Potassium 4.0 (3.5-5.1) mmol/L Chloride 95 L (98-107) mmol/L Carbon Dioxide 22 (22-30) mmol/L Anion Gap 16 mmol/L BUN 18 (9-20) mg/dL Creatinine 0.78 (0.66-1.25) mg/dL Est GFR (CKD-EPI)AfAm >90 (>60 ml/min/1.73 sqM) Est GFR (CKD-EPI)NonAf >90 (>60 ml/min/1.73 sqM) Glucose 120 H (74-99) mg/dL Calcium 9.6 (8.4-10.2) mg/dL Total Bilirubin 0.6 (0.2-1.3) mg/dL AST 49 (17-59) U/L ALT 24 (4-49) U/L Alkaline Phosphatase 99 (38-126) U/L Total Protein 7.9 (6.3-8.2) g/dL Albumin 4.6 (3.5-5.0) g/dL Amylase 53 (30-110) U/L Lipase 29 (23-300) U/L Urine Color Yellow Urine Appearance Turbid (Clear) Urine pH 5.5 (5.0-8.0) Ur Specific [place] 1.024 (1.001-1.035) Urine Protein Trace H (Negative) Urine Glucose (UA) Negative (Negative) Urine Ketones Negative (Negative) Urine Blood Negative (Negative) Urine Nitrite Negative (Negative) Urine Bilirubin Negative (Negative) Urine Urobilinogen 2.0 (<2.0) mg/dL Ur Leukocyte Esterase Negative (Negative) Urine WBC 2 (0-5) /hpf Ur Squamous Epith Cells 2 (0-4) /hpf Amorphous Sediment Occasional H (None) /hpf Urine Bacteria Rare H (None) /hpf Urine Mucus Many H (None) /hpf Coronavirus (PCR) (Not Detectd) 11/26/21 Range/Units 12:02 WBC (3.8-10.6) k/uL RBC (4.30-5.90) m/uL Hgb (13.0-17.5) gm/dL Hct (39.0-53.0) % MCV (80.0-100.0) fL MCH (25.0-35.0) pg MCHC (31.0-37.0) g/dL RDW (11.5-15.5) % Plt Count (150-450) k/uL MPV Neutrophils % % Lymphocytes % % Monocytes % % Eosinophils % % Basophils % % Neutrophils # (1.3-7.7) k/uL Lymphocytes # (1.0-4.8) k/uL Monocytes # (0-1.0) k/uL Eosinophils # (0-0.7) k/uL Basophils # (0-0.2) k/uL Sodium (137-145) mmol/L Potassium (3.5-5.1) mmol/L Chloride (98-107) mmol/L Carbon Dioxide (22-30) mmol/L Anion Gap mmol/L BUN (9-20) mg/dL Creatinine (0.66-1.25) mg/dL Est GFR (CKD-EPI)AfAm (>60 ml/min/1.73 sqM) Est GFR (CKD-EPI)NonAf (>60 ml/min/1.73 sqM) Glucose (74-99) mg/dL Calcium (8.4-10.2) mg/dL Total Bilirubin (0.2-1.3) mg/dL AST (17-59) U/L ALT (4-49) U/L Alkaline Phosphatase (38-126) U/L Total Protein (6.3-8.2) g/dL Albumin (3.5-5.0) g/dL Amylase (30-110) U/L Lipase (23-300) U/L Urine Color Urine Appearance (Clear) Urine pH (5.0-8.0) Ur Specific [place] (1.001-1.035) Urine Protein (Negative) Urine Glucose (UA) (Negative) Urine Ketones (Negative) Urine Blood (Negative) Urine Nitrite (Negative) Urine Bilirubin (Negative) Urine Urobilinogen (<2.0) mg/dL Ur Leukocyte Esterase (Negative) Urine WBC (0-5) /hpf Ur Squamous Epith Cells (0-4) /hpf Amorphous Sediment (None) /hpf Urine Bacteria (None) /hpf Urine Mucus (None) /hpf Coronavirus (PCR) Detected A (Not Detectd) Disposition Clinical Impression: COVID-19 Disposition: HOME SELF-CARE Condition: Stable Instructions (If sedation given, give patient instructions): Coronavirus Disease 2019 (COVID-19) Additional Instructions: Please return to the Emergency Department if symptoms worsen or any other concerns. Prescriptions: Ondansetron Odt [Zofran Odt] 4 mg PO Q8HR PRN #10 tab PRN Reason: Nausea Is patient prescribed a controlled substance at d/c from ED?: No Referrals: Papo Herrera MD [Primary Care Provider] - 1-2 days Time of Disposition: 12:40
[2021-11-26 11:11] LABS: ALT 24 U/L (4-49); AST 49 U/L (17-59); African American GFR (CKD) >90 (>60 ml/min/1.73 sqM); Albumin 4.6 g/dL (3.5-5.0); Alkaline Phosphatase 99 U/L (38-126); Amylase 53 U/L (30-110); Anion Gap 16 mmol/L; Blood Urea Nitrogen 18 mg/dL (9-20); Calcium 9.6 mg/dL (8.4-10.2); Carbon Dioxide 22 mmol/L (22-30); Chloride 95 mmol/L (98-107); Glucose 120 mg/dL (74-99); Lipase 29 U/L (23-300); Non-African American GFR(CKD) >90 (>60 ml/min/1.73 sqM); Sodium 133 mmol/L (137-145); Total Bilirubin 0.6 mg/dL (0.2-1.3); Total Protein 7.9 g/dL (6.3-8.2)
[2021-11-26 11:14] LABS: Amorphous Sediment,Urine Occasional /hpf; Appearance,Urine Turbid (Clear); Bacteria,Urine Rare /hpf; Bilirubin,Urine Negative (Negative); Blood,Urine Negative (Negative); Color,Urine Yellow; Glucose,Urine (UA) Negative (Negative); Ketones,Urine Negative (Negative); Leukocyte Esterase,Urine Negative (Negative); Mucus,Urine Many /hpf; Nitrite,Urine Negative (Negative); PH, Urine 5.5 (5.0-8.0); Protein,Urine Trace (Negative); Specific Gravity,Urine 1.024 (1.001-1.035); Squamous Epithelial Cell,Urine 2 /hpf (0-4); WBC,Urine 2 /hpf (0-5)
[2021-11-26 11:21] LABS: Basophils % (A) 1 %; Eosinophils % (A) 1 %; HCT 50.6 % (39.0-53.0); HGB 16.8 gm/dL (13.0-17.5); Lymphocytes # (A) 0.6 k/uL (1.0-4.8); Lymphocytes % (A) 9 %; MCH 28.5 pg (25.0-35.0); MCHC 33.3 g/dL (31.0-37.0); MCV 85.8 fL (80.0-100.0); Mean Platelet Volume 7.5; Monocytes # (A) 0.6 k/uL (0-1.0); Monocytes % (A) 10 %; Neutrophils # (A) 4.8 k/uL (1.3-7.7); Neutrophils % (A) 77 %; Platelet Count 146 k/uL (150-450); RDW 12.4 % (11.5-15.5); WBC 6.3 k/uL (3.8-10.6)
[2021-11-26 12:02] VITALS: BP 122/68; PULSE 72; TEMP 99.5
== END 2021-11-26 13:04 | disposition home or self-care (01) ==
LOC: EC 10:02
DX: U07.1 COVID-19 (principal); F90.9 Attention-deficit hyperactivity disorder, unspecified type; F17.200 Nicotine dependence, unspecified, uncomplicated; F12.90 Cannabis use, unspecified, uncomplicated; Z90.49 Acquired absence of other specified parts of digestive tract
CPT/HCPCS: 36415; 80053; 81001; 82150; 83690; 85025; 87635; 96361; 96374; 96375; 99284

== ENCOUNTER 2022-03-12 19:57 | Emergency (ER) | payer OTHER ==
[2022-03-12 20:17] VITALS: BP 115/72; PULSE 80; RESP 20; TEMP 97.6
[2022-03-12] MEDS ORDERED: KETOROLAC 15 MG/ML 1 ML VIAL IM STA (20:46)
[2022-03-12] MEDS ORDERED: ORPHENADRINE 30 MG/ML 2 ML VIAL IM STA (20:46)
--- NOTE | 2022-03-12 20:57 | ED ---
General Adult HPI - General Chief complaint: Back Pain/Injury Stated complaint: Neck and Back Pain Time Seen by Provider: 03/12/22 20:47 Source: patient Mode of arrival: ambulatory Limitations: no limitations - History of Present Illness Initial comments: Patient is a 41-year-old male who presents to the emergency department with a chief complaint of neck and right shoulder pain. Patient states the pain started 4 days ago and has gradually gotten worse. Patient states he was raking leaves today and felt a pop in his right shoulder. Patient has experienced increased neck and right shoulder pain since the injury. Pain is worse with overhead movement. Patient took Motrin 800 and [place] which he states helped the pain initially but the pain has returned. Patient reports tingling down the right arm to his fingers. He states he has full range of motion of the neck and right shoulder. Patient has no other concerns at this time including fever, chills, headache, shortness of breath, cough, chest pain, abdominal pain, nausea, and vomiting. - Related Data Home Medications Medication Instructions Recorded Confirmed No Known Home Medications 03/12/22 03/12/22 Previous Rx's Medication Instructions Recorded HYDROcodone/APAP 7.5-325MG [[place] 1 tab PO Q6HR PRN #20 tab 03/12/22 7.5-325] predniSONE 50 mg PO DAILY #5 tab 03/12/22 Allergies Allergy/AdvReac Type Severity Reaction Status Date / Time bee venom protein (honey bee) Allergy Anaphylaxis Verified 03/12/22 21:46 Review of Systems ROS Statement: Those systems with pertinent positive or pertinent negative responses have been documented in the HPI. ROS Other: All systems not noted in ROS Statement are negative. Past Medical History Past Medical History: No Reported History History of Any Multi-Drug Resistant Organisms: None Reported Past Surgical History: Appendectomy, Orthopedic Surgery Past Psychological History: ADD/ADHD Smoking Status: Current every day smoker Past Alcohol Use History: None Reported Past Drug Use History: Marijuana General Exam Limitations: no limitations General appearance: alert, in no apparent distress Head exam: Present: atraumatic, normocephalic, normal inspection Eye exam: Present: normal appearance, PERRL, EOMI. Absent: scleral icterus, conjunctival injection, periorbital swelling Neck exam: Present: normal inspection, tenderness (Right-sided and posterior), full ROM. Absent: meningismus Respiratory exam: Present: normal lung sounds bilaterally. Absent: respiratory distress, wheezes, rales, rhonchi, stridor Cardiovascular Exam: Present: regular rate, normal rhythm, normal heart sounds. Absent: systolic murmur, diastolic murmur, rubs, gallop, clicks GI/Abdominal exam: Present: soft, normal bowel sounds. Absent: distended, tenderness, guarding, rebound, rigid Right Shoulder Exam: Present: normal inspection, full ROM, tenderness (Supraspinatus region). Absent: swelling, laceration, ecchymosis, deformity, crepitus, dislocation, erythema, tenderness over AC joint Upper Arm exam: Present: normal inspection, full ROM. Absent: tenderness, swelling, abrasion, laceration, ecchymosis, deformity, crepidus, dislocation, erythema Neuro motor exam: Present: wrist extension intact, thumb opposition intact, thumb IP flexion intact, thumb adduction intact, fingers 2-5 abduction intact Vascular: Present: normal capillary refill, radial pulse, brachial pulse, ulnar pulse. Absent: vascular compromise Back exam: Present: normal inspection, full ROM, tenderness (Cervical, posteriorly and right-sided) Neurological exam: Present: alert, oriented X3, CN II-XII intact Psychiatric exam: Present: normal affect, normal mood Skin exam: Present: warm, dry, intact, normal color. Absent: rash Course Vital Signs 03/12/22 20:15 Temperature 97.6 F Pulse Rate 80 Respiratory 20 Rate Blood Pressure 115/72 O2 Sat by Pulse 99 Oximetry Medical Decision Making - Medical Decision Making This is a 41-year-old male who presents with neck and right shoulder pain. Thorough history and examination were performed. Patient is neurovascularly intact. There is no obvious deformity of the right shoulder. There is tenderness with palpation of the posterior and right sided neck as well as the right supraspinatus region. Cervical, right shoulder, right scapula x-rays were obtained which are unremarkable. Patient given Norflex and Toradol for pain. On reevaluation patient states his pain is unchanged. Patient states he is in severe pain. Morphine was given. Patient will be discharged with administrative and program specialist referral for further evaluation and management. I did prescribe him a short course of [place] as well as prednisone. Return parameters discussed. Patient verbalizes understanding and is agreeable to plan. Dr. Holbrook is my attending. Disposition Clinical Impression: Neck pain, Shoulder pain, right Disposition: HOME SELF-CARE Condition: Good Instructions (If sedation given, give patient instructions): Rotator Cuff Injury (ED) Additional Instructions: Please take medication as directed. You may have a rotator cuff muscle injury. Follow-up with administrative and program specialist in 1-2 days. Return to the emergency department if you experience new, concerning, or worsening symptoms. Prescriptions: HYDROcodone/APAP 7.5-325MG [[place] 7.5-325] 1 tab PO Q6HR PRN #20 tab PRN Reason: Pain predniSONE 50 mg PO DAILY #5 tab Is patient prescribed a controlled substance at d/c from ED?: Yes When asked, does pt state using other controlled substances?: No If prescribed controlled substance>3 days was MAPS reviewed?: Yes If opioid is for acute pain is fill amount 7 days or less?: Yes If Rx opioid, was Start Talking consent form obtained?: Yes Referrals: Papo Herrera MD [Primary Care Provider] - 1-2 days Konrad Vicente MD [STAFF PHYSICIAN] - 1-2 days Time of Disposition: 21:52
--- NOTE | 2022-03-12 21:12 | XR ---
EXAMINATION TYPE: XR shoulder complete RT DATE OF EXAM: 03/12/2022 COMPARISON: NONE HISTORY: Neck pain TECHNIQUE: 3 views FINDINGS: I see no fracture nor dislocation. Joint spaces are normal. There are no pathologic calcifi cations. IMPRESSION: Negative right shoulder exam. No fracture seen.
--- NOTE | 2022-03-12 21:13 | XR ---
EXAMINATION TYPE: XR scapula RT DATE OF EXAM: 03/12/2022 COMPARISON: NONE HISTORY: Neck pain TECHNIQUE: 2 view FINDINGS: I see no fracture nor dislocation. Glenohumeral joint is intact. IMPRESSION: Negative right scapula exam.
--- NOTE | 2022-03-12 21:14 | XR ---
EXAMINATION TYPE: XR cervical spine comp DATE OF EXAM: 03/12/2022 COMPARISON: NONE HISTORY: Neck pain TECHNIQUE: 5 views FINDINGS: Cervical vertebral have normal alignment. Disc spaces are fairly normal. Posterior limits a re intact. Neural foramina are widely patent. Atlantoaxial facet joint is normal. There are no cervic al ribs. IMPRESSION: Negative cervical spine exam. No fracture seen.
[2022-03-12] MEDS ORDERED: MORPHINE SULFATE 4 MG/ML SYRINGE IVP STA (21:48)
== END 2022-03-12 22:10 | disposition home or self-care (01) ==
LOC: EC 19:57
DX: M54.2 Cervicalgia (principal); M25.511 Pain in right shoulder; F17.200 Nicotine dependence, unspecified, uncomplicated; F12.90 Cannabis use, unspecified, uncomplicated
CPT/HCPCS: 72050; 73010; 73030; 99283; 96374; 96372 ×2; J2270; J2360; J1885

== ENCOUNTER 2022-12-07 12:33 | Emergency (ER) | payer OTHER ==
--- NOTE | 2022-12-07 12:38 | ED ---
Headache HPI <Andie Resendiz - Last Filed: 12/07/22 12:35> - General Source: patient, family, RN notes reviewed Mode of arrival: ambulatory Limitations: no limitations <Josefina Lang - Last Filed: 12/07/22 19:42> - General Stated Complaint: Migraine - History of Present Illness Initial Comments: 42 Year old male presents to the emergency department with a chief complaint of headache x 5 months. He has been taking tylenol and motrin without relief. He denies trauma or hitting his head. He denies fever, chills, vision changes, dizziness, lightheadedness. Denies recent sick contacts. (Andie Resendiz) 42-year-old male presents to the emergency Department with complaints of frontal headache/sinus pressure for the past 4-5 months. States he has been taking Tylenol and Motrin at home with minimal relief. Reports some nasal drainage. Has been using Vicks non-medicated nasal spray with some improvement. Reports cough consistent with COPD. No facial trauma or injury. Denies fever, chills, dizziness, dental pain, sore throat, chest pain, shortness of breath, abdominal pain, nausea, vomiting, diarrhea, dysuria, or hematuria. (Josefina Lang) - Related Data Previous Rx's Medication Instructions Recorded HYDROcodone/APAP 7.5-325MG [[place] 1 tab PO Q6HR PRN #20 tab 03/12/22 7.5-325] predniSONE 50 mg PO DAILY #5 tab 03/12/22 Amoxic-Pot Clav 875-125Mg 1 tab PO Q12HR 10 Days #20 tab 12/07/22 [Augmentin 875-125] Fluticasone Nasal Raymond [Flonase 1 spray EA NOSTRIL DAILY #16 gm 12/07/22 Nasal Raymond] predniSONE 50 mg PO DAILY 5 Days #5 tab 12/07/22 Allergies Allergy/AdvReac Type Severity Reaction Status Date / Time bee venom protein (honey bee) Allergy Anaphylaxis Verified 12/07/22 12:44 Review of Systems ROS Other: All systems not noted in ROS Statement are negative. <Andie Resendiz - Last Filed: 12/07/22 12:35> ROS Other: All systems not noted in ROS Statement are negative. <Josefina Lang - Last Filed: 12/07/22 19:42> ROS Statement: Those systems with pertinent positive or pertinent negative responses have been documented in the HPI. Past Medical History Past Medical History: No Reported History History of Any Multi-Drug Resistant Organisms: None Reported Past Surgical History: Appendectomy, Orthopedic Surgery Past Psychological History: ADD/ADHD Smoking Status: Current every day smoker Past Alcohol Use History: None Reported Past Drug Use History: Marijuana <Andie Resendiz - Last Filed: 12/07/22 12:35> General Exam Limitations: no limitations General appearance: alert, in no apparent distress, other (Well-developed, well- nourished male in no acute distress.) Head exam: Present: atraumatic, normocephalic, normal inspection Eye exam: Present: normal appearance. Absent: scleral icterus, conjunctival injection, periorbital swelling ENT exam: Present: normal oropharynx, mucous membranes moist, other (frontal/facial sinus tenderness upon palpation) Expanded TM/Canal exam: Erythema: Right TM, Bulging: Right TM Throat exam: normal inspection. negative: tonsillar erythema Neck exam: Present: normal inspection, full ROM. Absent: tenderness, meningismus, lymphadenopathy Respiratory exam: Present: normal lung sounds bilaterally. Absent: respiratory distress, wheezes, rales, rhonchi, stridor, chest wall tenderness Cardiovascular Exam: Present: regular rate, normal rhythm, normal heart sounds. Absent: systolic murmur, diastolic murmur, rubs, gallop, clicks Neurological exam: Present: alert, oriented X3, CN II-XII intact Psychiatric exam: Present: normal affect, normal mood Skin exam: Present: warm, dry, intact, normal color. Absent: rash <Josefina Lang - Last Filed: 12/07/22 19:42> Course <Josefina Lang - Last Filed: 12/07/22 19:42> Vital Signs 12/07/22 12/07/22 12:44 18:21 Temperature 98.3 F 98.3 F Pulse Rate 87 93 Respiratory 16 16 Rate Blood Pressure 153/96 145/86 O2 Sat by Pulse 99 98 Oximetry - Reevaluation(s) Reevaluation #1: 12/07/22 17:[address] Will treat with antibiotic given duration of symptoms. Also discussed symptomatic management. Patient agreeable with this plan of care. (Josefina Lang) Medical Decision Making - Radiology Data Radiology results: report reviewed, image reviewed <Josefina Lang - Last Filed: 12/07/22 19:42> - Medical Decision Making 42-year-old male presents to the emergency Department with complaints of sinus pressure and headache for the past 4 months. Upon exam, patient is well-ap pearing and in no acute distress. No focal neurological deficits. There is tenderness upon palpation of the frontal sinuses. Right tympanic membrane is erythematous and bulging. Antibiotic therapy will be initiated. Patient is prescribed oral steroid. Instructed on symptomatic management. Return parameters discussed in detail. Patient verbalizes understanding and agrees with this plan. Attending: Jose Juan. Was pt. sent in by a medical professional or institution? @ -No Did you speak to anyone other than the patient for history? @ -No Did you review nursing and triage notes? @ -Yes, agree Were old charts reviewed? @ -No Differential Diagnosis? @ -Acute headache, sinusitis, acute otitis media, URI, dental pain, facial injury, this is not meant to be an exhaustive list EKG interpreted by me (3pts min.)? @ -Not applicable X-rays interpreted by me (1pt min.)? @ -None CT interpreted by me (1pt min.)? @ -CT as interpreted by me shows opacification of right paranasal sinus U/S interpreted by me (1pt. min.)? @ -Not applicable What testing was considered but not performed? (CT, X-rays, U/S, labs)? Why? @ -Viral swabs, however symptoms have been ongoing for prolonged duration What meds were considered but not given? Why? @ -None Did you discuss the management of the patient with other professionals? @ -None Did you reconcile home meds? @ -No Was smoking cessation discussed for >3mins.? @ -No Was critical care preformed (if so, how long)? @ -No Were there social determinants of health that impacted care today? How? (Homelessness, low income, unemployed, alcoholism, drug addiction, tr ansportation, low edu. Level, literacy, decrease access to med. care, alf, rehab)? @ -Limited access to healthcare with state insurance while [place] in [place] state Was there de-escalation of care discussed even if they declined? (Discuss DNR or withdrawal of care, Hospice)? @ -No What co-morbidities impacted this encounter? (DM, HTN, Smoking, COPD, CAD, Cancer, CVA, Hep., AIDS, mental health diagnosis, sleep apnea, morbid obesity)? @ -None Was patient admitted / discharged? @ -Discharged Undiagnosed new problem with uncertain prognosis? @ -None Drug Therapy requiring intensive monitoring for toxicity (Heparin, Nitro, Insulin, Cardizem)? @ -None Were any procedures done? @ -None Diagnosis/symptom? @ -Paranasal sinus disease, right otitis media Acute, or Chronic, or Acute on Chronic? @ -Acute Uncomplicated (without systemic symptoms) or Complicated (systemic symptoms)? @ -Uncomplicated Side effects of treatment? @ -None Exacerbation, Progression, or Severe Exacerbation] @ -No Poses a threat to life or bodily function? @ -No (Josefina Lang) - Radiology Data Interpreted by me: Primary interpretation of CT there is opacification of the right frontal and maxillary sinuses. (Josefina Lang) CT of the brain without contrast was obtained. Report was reviewed in its entirety. Impression per Dr. Wagner is no acute intracranial hemorrhage or midline shift seen.. Nasal sinus disease noted as detailed above. (Josefina Lang) Disposition <Andie Resendiz - Last Filed: 12/07/22 12:35> Is patient prescribed a controlled substance at d/c from ED?: No Time of Disposition: 18:06 <Josefina Lang - Last Filed: 12/07/22 19:42> Clinical Impression: Sinusitis, Otitis media Disposition: HOME SELF-CARE Condition: Stable Instructions (If sedation given, give patient instructions): Sinusitis (ED) Additional Instructions: Take antibiotic as directed. You are being prescribed a steroid to reduce inflammation. Nasal spray twice daily. Consider vaporizer/humidifier in the room in which you sleep. Return to the emergency department with any new, worsening, or concerning symptoms. Prescriptions: Amoxic-Pot Clav 875-125Mg [Augmentin 875-125] 1 tab PO Q12HR 10 Days #20 tab Fluticasone Nasal Raymond [Flonase Nasal Raymond] 1 spray EA NOSTRIL DAILY #16 gm predniSONE 50 mg PO DAILY 5 Days #5 tab Referrals: Papo Herrera MD [Primary Care Provider] - 1-2 days
[2022-12-07 12:46] VITALS: RESP 16; TEMP 98.3
--- NOTE | 2022-12-07 13:41 | CT ---
EXAMINATION TYPE: CT brain wo con DATE OF EXAM: 12/07/2022 COMPARISON: None. HISTORY: Pressure in head X [address] DLP: 1098.2 mGycm. Automated Exposure Control for Dose Reduction was Utilized. TECHNIQUE: CT scan of the head is performed without contrast. FINDINGS: There is no acute intracranial hemorrhage or midline shift identified. Mild ventricular a nd sulcal prominence. [place]-white matter differentiation fairly well maintained. Right maxillary sinu s is completely opacified. There is increased opacification in the ethmoid sinuses bilaterally right greater than left. There is completely opacified right frontal sinus. The globes are intact bilateral ly. IMPRESSION: No acute intracranial hemorrhage or midline shift is seen. Paranasal sinus disease noted as detailed above.
[2022-12-07] MEDS ORDERED: predniSONE 50 MG TAB PO STA (18:06)
[2022-12-07] MEDS ORDERED: AMOXIC-POT CLAV 875-125MG 1 EACH TAB PO STA (18:06)
[2022-12-07 18:22] VITALS: BP 145/86; PULSE 93
== END 2022-12-07 18:22 | disposition home or self-care (01) ==
LOC: EC 12:33
DX: J32.9 Chronic sinusitis, unspecified (principal); H66.90 Otitis media, unspecified, unspecified ear; F90.9 Attention-deficit hyperactivity disorder, unspecified type; F17.200 Nicotine dependence, unspecified, uncomplicated; F12.90 Cannabis use, unspecified, uncomplicated; Z91.030 Bee allergy status
CPT/HCPCS: 70450; 99284; J7512

== ENCOUNTER 2024-05-11 16:28 | Emergency (ER) | payer OTHER ==
[2024-05-11 16:38] VITALS: RESP 18; TEMP 97.7
--- NOTE | 2024-05-11 17:17 | ED ---
Chest Pain HPI - General Source: patient, RN notes reviewed Mode of arrival: ambulatory Limitations: no limitations <Samia Bailey - Last Filed: 05/11/24 17:16> <Brandon Manzano - Last Filed: 05/11/24 21:45> - General Chief Complaint: Chest Pain Stated Complaint: Chest pain, SOB Time Seen by Provider: 05/11/24 16:40 - History of Present Illness Initial Comments: Quick Note- this is a 43-year-old male presents emergency department chief complaint of right-sided intermittent chest pain over the past 3 days. endorses mild dizziness. He denies history of GA, CVA, DVT, PE. Is not on blood thinners. (Samia Bailey) Dictation was produced using [employer] dictation software. please excuse any grammatical, word or spelling errors. Chief Complaint: 43-year-old male presents to the emergency department chest pain History of Present Illness: Patient 43-year-old male presents emergency de partment chest pain. Patient states that he has a sharp chest pain. States that it has more pain when he coughs. Patient states that earlier today he had a short episode where he felt like he was choking on his spit. Lasted for several seconds and resolved on its own. Patient denies any suicidal ideation. Denies any fever, chills or night sweats. Denies any medical history. No family history of heart attacks. The ROS documented in this emergency department record has been reviewed and confirmed by me. Those systems with pertinent positive or negative responses have been documented in the HPI. All other systems are other negative and/or noncontributory. (Brandon Manzano) - Related Data Previous Rx's Medication Instructions Recorded HYDROcodone/APAP 7.5-325MG [[place] 1 tab PO Q6HR PRN #20 tab 03/12/22 7.5-325] predniSONE 50 mg PO DAILY #5 tab 03/12/22 Amoxic-Pot Clav 875-125Mg 1 tab PO Q12HR 10 Days #20 tab 12/07/22 [Augmentin 875-125] Fluticasone Nasal [place] [Flonase 1 spray EA NOSTRIL DAILY #16 gm 12/07/22 Nasal [place]] predniSONE 50 mg PO DAILY 5 Days #5 tab 12/07/22 Allergies Allergy/AdvReac Type Severity Reaction Status Date / Time bee venom protein (honey bee) Allergy Anaphylaxis Verified 12/07/22 12:44 Review of Systems ROS Other: All systems not noted in ROS Statement are negative. <Samia Bailey - Last Filed: 05/11/24 17:16> ROS Other: All systems not noted in ROS Statement are negative. <Brandon Manzano - Last Filed: 05/11/24 21:45> ROS Statement: Those systems with pertinent positive or pertinent negative responses have been documented in the HPI. Past Medical History Past Medical History: No Reported History History of Any Multi-Drug Resistant Organisms: None Reported Past Surgical History: Appendectomy, Orthopedic Surgery Past Psychological History: ADD/ADHD, Depression Smoking Status: Current every day smoker Past Alcohol Use History: None Reported Past Drug Use History: Marijuana <Samia Bailey - Last Filed: 05/11/24 17:16> General Exam Limitations: no limitations <Samia Bailey - Last Filed: 05/11/24 17:16> <Brandon Manzano - Last Filed: 05/11/24 21:45> - General Exam Comments Initial Comments: Visual Physical Exam Vital signs reviewed General: Well-appearing, nontoxic, no acute distress. Head: Normocephalic, atraumatic Eyes: PERRLA, EOMI ENT: Airway patent Chest: Nonlabored breathing Skin: No visual rash, normal skin tone Neuro: Alert and oriented 3 Musculoskeletal: No gross abnormalities (Joannaeleree,Samia) PHYSICAL EXAM: General Impression: Alert and oriented x3, not in acute distress HEENT: Normocephalic atraumatic, extra-ocular movements intact, pupils equal and reactive to light bilaterally, mucous membranes moist. Cardiovascular: Heart regular rate and rhythm Chest: Able to complete full sentences, no retractions, no tachypnea Abdomen: abdomen soft, non-tender, non-distended, no organomegaly Musculoskeletal: Pulses present and equal in all extremities, no peripheral edema Motor: no focal deficits noted Neurological: CN II-XII grossly intact, no focal motor or sensory deficits noted Skin: Intact with no visualized rashes Psych: Normal affect and mood (Brandon Manzano) Course Vital Signs 05/11/24 05/11/24 16:32 21:23 Temperature 97.7 F Pulse Rate 90 68 Respiratory 18 18 Rate Blood Pressure 110/74 102/71 O2 Sat by Pulse 99 99 Oximetry Chest Pain MDM <Samia Bailey - Last Filed: 05/11/24 17:16> <Brandon Manzano - Last Filed: 05/11/24 21:45> - MDM I completed the quick note portion of this chart signed Samia Bailey PA-C (Samia Bailey) My EKG interpretation: Ventricular rate 79, sinus rhythm,. 140, QRS 102, QTc 408. No CT prolongation, no QTC prolongation, no ST or T-wave changes noted. Overall, this EKG is unremarkable Was pt. sent in by a medical professional or institution ([facility], CH[employer]ITIONER, urgent care, hospital, or penitentiary...) When possible be specific @ -No Did you speak to anyone other than the patient for history (EMS, parent, family, police, friend...)? What history was obtained from this source @ -No Did you review nursing and triage notes (agree or disagree)? Why? @ -I reviewed and agree with nursing and triage notes Were old charts reviewed (outside hosp., previous admission, EMS record, old EKG, old radiological studies, urgent care reports/EKG's, penitentiary records)? Report findings @ -No old charts were reviewed Differential Diagnosis (chest pain, altered mental status, abdominal pain women, abdominal pain men, vaginal bleeding, musculoskeletal, weakness, fever, dyspnea, syncope, headache, dizziness, GI bleed, back pain, seizure, CVA, palpatations, mental health)? @ -Differential Chest Pain: Stable Angina, Unstable Angina, STEMI, NSTEMI Aortic Dissection, Pneumothorax, Musculoskeletal, Esophageal Spasm GERD, Cholecystitis, Pancreatitis, Zoster, t his is not meant to be an all-inclusive list. EKG interpreted by me (3pts min.). @ -None done X-rays interpreted by me (1pt min.). @ -Chest x-ray is nonacute CT interpreted by me (1pt min.). @ -None done U/S interpreted by me (1pt. min.). @ -None done What testing was considered but not performed or refused? (CT, X-rays, U/S, labs)? Why? @ -None What meds were considered but not given or refused? Why? @ -None Did you discuss the management of the patient with other professionals (professionals i.e. Dr., PA, CHRISTIAN SCIENCE PRACTITIONER, lab, RT, psych nurse, social service director, community placement worker, teacher, disability insurance hearing officer, caser in)? Give summary @ -No Was smoking cessation discussed for >3mins.? @ -No Was critical care preformed (if so, how long)? @ -No Were there social determinants of health that impacted care today? How? (Homelessness, low income, unemployed, alcoholism, drug addiction, transportation, low edu. Level, literacy, decrease access to med. care, [facility], rehab)? @ -No Was there de-escalation of care discussed even if they declined (Discuss DNR or withdrawal of care, Hospice)? DNR status @ -No What co-morbidities impacted this encounter? (DM, HTN, Smoking, COPD, CAD, Cancer, CVA, ARF, Chemo, Hep., AIDS, mental health diagnosis, sleep apnea, morbid obesity)? @ -None Was patient admitted / discharged? Hospital course, mention meds given and route, prescriptions, significant lab abnormalities, going to OR and other pertinent info. @ -43-year-old male presents to the emergency department with atypical chest pain. Vital signs upon arrival are within acceptable limits. Laboratory evaluation unremarkable. 2 troponins are negative. Patient does not have any high risk features. Patient well-appearing at the bedside. Reevaluated and found to be in stable condition. Patient discharged. Tolerating food at the bedside without complications. Undiagnosed new problem with uncertain prognosis? @ -No Drug Therapy requiring intensive monitoring for toxicity (Heparin, Nitro, Insulin, Cardizem)? @ -No Were any procedures done? @ -No Diagnosis/symptom? Acute, or Chronic, or Acute on Chronic? Uncomplicated (without systemic symptoms) or Complicated (systemic symptoms)? @ -Atypical chest pain Side effects of treatment? @ -No Exacerbation, Progression, or Severe Exacerbation? @ -No Poses a threat to life or bodily function? How? (Chest pain, [place], GA, pneumonia, PE, COPD, DKA, ARF, appy, cholecystitis, CVA, Diverticulitis, Homicidal, Suicidal, threat to staff... and all critical care pts) @ -No (Brandon Manzano) Disposition <Stilolar,Samia - Last Filed: 05/11/24 17:16> Is patient prescribed a controlled substance at d/c from ED?: No Time of Disposition: 21:45 <Brandon Manzano - Last Filed: 05/11/24 21:45> Clinical Impression: Chest wall muscle strain Disposition: HOME SELF-CARE Condition: Fair Instructions (If sedation given, give patient instructions): Costochondritis (ED) Referrals: None,Stated [Primary Care Provider] - 1-2 days
[2024-05-11 18:06] LABS: Basophils # (A) 0.1 k/uL (0-0.2); Basophils % (A) 1 %; Eosinophils # (A) 0.3 k/uL (0-0.7); Eosinophils % (A) 3 %; HCT 47.3 % (39.0-53.0); HGB 15.7 gm/dL (13.0-17.5); Lymphocytes # (A) 1.8 k/uL (1.0-4.8); Lymphocytes % (A) 18 %; MCH 28.5 pg (25.0-35.0); MCHC 33.1 g/dL (31.0-37.0); MCV 86.3 fL (80.0-100.0); Mean Platelet Volume 7.2; Monocytes # (A) 0.5 k/uL (0-1.0); Monocytes % (A) 5 %; Neutrophils # (A) 7.3 k/uL (1.3-7.7); Neutrophils % (A) 73 %; Platelet Count 235 k/uL (150-450); RBC 5.48 m/uL (4.30-5.90)
[2024-05-11 18:11] LABS: Partial Thromboplastin Time 23.7 sec (22.0-30.0); Prothrombin Time 10.8 sec (10.0-12.5)
[2024-05-11 18:16] LABS: ALT 11 U/L (4-49); AST 20 U/L (17-59); African American GFR (CKD) >90 (>60 ml/min/1.73 sqM); Albumin 4.1 g/dL (3.5-5.0); Alkaline Phosphatase 81 U/L (38-126); Anion Gap 5 mmol/L; Blood Urea Nitrogen 14 mg/dL (9-20); Calcium 9.3 mg/dL (8.4-10.2); Carbon Dioxide 30 mmol/L (22-30); Chloride 107 mmol/L (98-107); Glucose 120 mg/dL (74-99); Magnesium 2.2 mg/dL (1.6-2.3); Non-African American GFR(CKD) >90 (>60 ml/min/1.73 sqM); Potassium 3.9 mmol/L (3.5-5.1); Sodium 142 mmol/L (137-145); Total Bilirubin 0.4 mg/dL (0.2-1.3); Total Protein 6.7 g/dL (6.3-8.2)
--- NOTE | 2024-05-11 20:32 | XR ---
EXAMINATION TYPE: XR chest 2V DATE OF EXAM: 05/11/2024 7:16 PM CLINICAL INDICATION:Male, 43 years old with history of CP, dyspnea; [facility] COMPARISON: None TECHNIQUE: XR chest 2V Frontal and lateral views of the chest. FINDINGS: Lungs/Pleura: There is no evidence of pleural effusion, focal consolidation, or pneumothorax. Pulmonary vascularity: Unremarkable. Heart/mediastinum: Cardiomediastinal silhouette is unremarkable. Musculoskeletal: No acute osseous pathology. IMPRESSION: No acute cardiopulmonary disease/process.
[2024-05-11 21:24] VITALS: BP 102/71; PULSE 68
== END 2024-05-11 21:51 | disposition home or self-care (01) ==
LOC: EC 16:28
DX: S29.011A Strain of muscle and tendon of front wall of thorax, initial encounter (principal); F17.200 Nicotine dependence, unspecified, uncomplicated; Z91.030 Bee allergy status; X58.XXXA Exposure to other specified factors, initial encounter
CPT/HCPCS: 36415; 71046; 80053; 83735; 84484; 85025; 85610; 85730; 93005; 99285

== ENCOUNTER 2025-04-05 20:13 | Emergency (ER) | payer MEDICARE, OTHER ==
[2025-04-05 20:30] VITALS: BP 119/83; PULSE 87; RESP 18; TEMP 98.2
--- NOTE | 2025-04-05 20:43 | ED ---
ENT HPI - General Chief complaint: Dental/Oral Stated complaint: R side jaw swollen Time Seen by Provider: 04/05/25 20:34 Source: patient Mode of arrival: ambulatory Limitations: no limitations - History of Present Illness Initial comments: 44-year-old male presenting with chief complaint of right sided lower jaw swelling. States that the swelling started today. Patient does have several known dental caries and fractured teeth. He has been having some dental pain. He does not currently follow with a dentist. He is not on any antibiotics at this time. He is having no difficulty breathing or swallowing. No drooling or voice changes. No difficulty opening or closing his mouth. No injury or trauma. No fever chills nausea or vomiting. - Related Data Previous Rx's Medication Instructions Recorded HYDROcodone/APAP 7.5-325MG [Velpen 1 tab PO Q6HR PRN #20 tab 03/12/22 7.5-325] predniSONE 50 mg PO DAILY #5 tab 03/12/22 Amoxic-Pot Clav 875-125Mg 1 tab PO Q12HR 10 Days #20 tab 12/07/22 [Augmentin 875-125] Fluticasone Nasal Nenzel [Flonase 1 spray EA NOSTRIL DAILY #16 gm 12/07/22 Nasal Nenzel] predniSONE 50 mg PO DAILY 5 Days #5 tab 12/07/22 Amoxic-Pot Clav 875-125Mg 1 tab PO Q12HR 7 Days #14 tab 04/05/25 [Augmentin 875-125] Allergies Allergy/AdvReac Type Severity Reaction Status Date / Time bee venom protein (honey bee) Allergy Anaphylaxis Verified 04/05/25 20:30 Review of Systems ROS Statement: Those systems with pertinent positive or pertinent negative responses have been documented in the HPI. ROS Other: All systems not noted in ROS Statement are negative. Past Medical History Past Medical History: No Reported History History of Any Multi-Drug Resistant Organisms: None Reported Past Surgical History: Appendectomy, Orthopedic Surgery Past Psychological History: ADD/ADHD, Depression Smoking Status: Current every day smoker Past Alcohol Use History: None Reported Past Drug Use History: Marijuana General Exam Limitations: no limitations General appearance: alert, in no apparent distress Head exam: Present: atraumatic, normocephalic, normal inspection Eye exam: Present: normal appearance, EOMI Expanded Mouth exam: Present: tongue normal. Absent: drooling, trismus, muffled voice Teeth exam: Present: dental caries, fractured tooth #, dental tenderness #, gingival enlargement Throat exam: normal inspection Neck exam: Present: normal inspection. Absent: tenderness, meningismus Respiratory exam: Absent: respiratory distress Cardiovascular Exam: Present: regular rate Extremities exam: Present: normal inspection Neurological exam: Present: alert, oriented X3 Psychiatric exam: Present: normal affect, normal mood Skin exam: Present: warm, dry, normal color Course Vital Signs 04/05/25 20:28 Temperature 98.2 F Pulse Rate 87 Respiratory 18 Rate Blood Pressure 119/83 O2 Sat by Pulse 96 Oximetry Medical Decision Making - Medical Decision Making Was pt. sent in by a medical professional or institution (, [facility], [employer], urgent care, hospital, or halfway...) When possible be specific @ -No Did you speak to anyone other than the patient for history (EMS, parent, family, police, friend...)? What history was obtained from this source @ -No Did you review nursing and triage notes (agree or disagree)? Why? @ -I reviewed and agree with nursing and triage notes Were old charts reviewed (outside hosp., previous admission, EMS record, old EKG, old radiological studies, urgent care reports/EKG's, halfway records)? Report findings @ -No old charts were reviewed Differential Diagnosis (chest pain, altered mental status, abdominal pain women, abdominal pain men, vaginal bleeding, weakness, fever, dyspnea, syncope, headache, dizziness, GI bleed, back pain, seizure, CVA, palpatations, mental health, musculoskeletal)? @ -Differential includes dental abscess, toothache, Kali's angina, not an all-inclusive list EKG interpreted by me (3pts min.). @ -As above X-rays interpreted by me (1pt min.). @ -None done CT interpreted by me (1pt min.). @ -None done U/S interpreted by me (1pt. min.). @ -None done What testing was considered but not performed or refused? (CT, X-rays, U/S, labs)? Why? @ -None What meds were considered but not given or refused? Why? @ -None Did you discuss the management of the patient with other professionals (professionals i.e. , [facility], [employer], lab, RT, psych nurse, social services aide, surface grinder tender, teacher, emergency communications officer, shoe parts caser)? Give summary @ -No Was smoking cessation discussed for >3mins.? @ -No Was critical care preformed (if so, how long)? @ -No Were there social determinants of health that impacted care today? How? (Homelessness, low income, unemployed, alcoholism, drug addiction, transportation, low edu. Level, literacy, decrease access to med. care, care home, rehab)? @ -No Was there de-escalation of care discussed even if they declined (Discuss DNR or withdrawal of care, Hospice)? DNR status @ -No What co-morbidities impacted this encounter? (DM, HTN, Smoking, COPD, CAD, Cancer, CVA, ARF, Chemo, Hep., AIDS, mental health diagnosis, sleep apnea, morbid obesity)? @ -None Was patient admitted / discharged? Hospital course, mention meds given and route, prescriptions, significant lab abnormalities, going to OR and other pertinent info. @ -44-year-old male presenting with chief complaint of left-sided lower jaw swelling. On exam there is a bit of swelling noted on observation. Patient does have several fractured and decaying teeth. The gums do appear inflamed. He is having no difficulty breathing or swallowing. There is no midline shift. He has no brawny induration. The sublingual area is soft, no induration. No stridor. Patient will be treated for dental abscess with Augmentin. Instructed to follow-up with dentist. Follow-up with PCP. Report back to ER with any new or worsening symptoms. Discussed return parameters and answered all questions. Patient conveyed verbal understanding and agreed to the plan. My attending is Dr. Santiago Undiagnosed new problem with uncertain prognosis? @ -No Drug Therapy requiring intensive monitoring for toxicity (Heparin, Nitro, Insulin, Cardizem)? @ -No Were any procedures done? @ -No Diagnosis/symptom? @ -Dental abscess Acute, or Chronic, or Acute on Chronic? @ -Acute Uncomplicated (without systemic symptoms) or Complicated (systemic symptoms)? @ -Uncomplicated Side effects of treatment? @ -No Exacerbation, Progression, or Severe Exacerbation? @ -No Poses a threat to life or bodily function? How? (Chest pain, [place], [place], pneumonia, PE, COPD, DKA, ARF, appy, cholecystitis, CVA, Diverticulitis, Homicidal, Suicidal, threat to staff... and all critical care pts) @ -Unlikely at this time Disposition Clinical Impression: Dental abscess Disposition: HOME SELF-CARE Condition: Fair Instructions (If sedation given, give patient instructions): Dental Abscess (ED) Additional Instructions: Please follow up with the [facility] dental clinic. [address] [place] [address]. Phone number for new patients or [phone] for existing patients. Prescriptions: Amoxic-Pot Clav 875-125Mg [Augmentin 875-125] 1 tab PO Q12HR 7 Days #14 tab Is patient prescribed a controlled substance at d/c from ED?: No Referrals: None,Stated [Primary Care Provider] - 1-2 days Forms: Area PCPs Time of Disposition: 20:43
[2025-04-05] MEDS: AMOXIC-POT CLAV 875-125MG 1 EACH TAB PO STA (20:53)
== END 2025-04-05 20:58 | disposition home or self-care (01) ==
LOC: EC 20:13
DX: K04.7 Periapical abscess without sinus (principal); F17.200 Nicotine dependence, unspecified, uncomplicated; Z91.030 Bee allergy status
CPT/HCPCS: 99282